=== PATIENT | female | born 1935 | race Caucasian/White ===

== ENCOUNTER → 2017-02-17 | Outpatient (CLI) | payer MEDICARE, BC ==
[~2017-02-17] MED LIST: ASPIRIN 81MG TA81 MG PO; CENTRUM SILVER1 TAB PO; PRAVASTATIN 20M20 MG PO; SYNTHROID0.025 MG PO
--- NOTE | 2017-02-17 11:27 | RADIOLOGY REPORT PS360 ---
CHEST(2 VIEWS-NOT PORTABLE) HISTORY: DYSPNEA ON EXERTION ORDERING PHYSICIAN: Hadley Gao MD PATIENT AGE: 82 years COMPARISON: None available FINDINGS: There is mild cardiomegaly without failure.. Nodularity noted in the right perihilar region possibly related to overlapping vessel. Cannot exclude pulmonary nodule. Minimal nodularity also noted lung base 9 mm. There is increased density in the lung bases medially on both sides probably related to pericardial fat pad. Upper lobes are clear. No acute bony anomalies. IMPRESSION: 1. Mild cardiomegaly with probable pericardial fat pad. 2. Nonspecific nodular opacity left lower lobe could be related to nipple shadow and in the right infrahilar region probably related to overlapping vessel. Follow-up may confirm stability. 3. No definite acute finding
== END ==
LOC: RAD 09:57
DX: J45.909 Unspecified asthma, uncomplicated (principal); R06.09 Other forms of dyspnea

== ENCOUNTER → 2017-03-10 | Outpatient (CLI) | payer MEDICARE, BC ==
--- NOTE | 2017-03-10 14:20 | RADIOLOGY REPORT PS360 ---
MRI-C-SPINE W/O, MRI-3D RENDERING/MYELOGRAM HISTORY: Neck pain with burning sensation radiating into the head with bilateral shoulder pain, left-sided neck pain NECK PAIN ORDERING PHYSICIAN: Hadley Gao MD PATIENT AGE: 82 years COMPARISON: Radiograph of 02/28/2017 TECHNIQUE: Standard multiplanar multiecho sequences are performed without contrast. 3-D MIP and myelographic images are also rendered and reviewed. Motion artifact does decrease the szrbij-[id number] ratio. FINDINGS: There is normal alignment. Craniocervical junction has an unremarkable appearance. C2-C3: Unremarkable. C3-C4: Unremarkable. C4-C5: Minimal foraminal narrowing on the left from uncovertebral hypertrophy. C5-C6: Degenerative disc disease with minimal bulging disc. There is left-sided uncovertebral hypertrophy with left-sided foraminal narrowing. C6-C7: Degenerative disc disease with medium-sized bulging disc with resultant canal stenosis. C7-T1: Degenerative disc disease. T1-T2: Minimal bulging disc. IMPRESSION: 1. Cervical spondylosis with multilevel degenerative disc disease from C5 to C7 with bulging disc at C5-C6 and C6-C7. Canal stenosis at C6-C7.. 2. Left-sided foraminal narrowing at C4-C5 and C5-C6 from uncovertebral hypertrophy 3. No disc herniation evident
--- NOTE | 2017-03-10 14:20 | RADIOLOGY REPORT PS360 ---
MRI-C-SPINE W/O, MRI-3D RENDERING/MYELOGRAM HISTORY: Neck pain with burning sensation radiating into the head with bilateral shoulder pain, left-sided neck pain NECK PAIN ORDERING PHYSICIAN: Hadley Gao MD PATIENT AGE: 82 years COMPARISON: Radiograph of 02/28/2017 TECHNIQUE: Standard multiplanar multiecho sequences are performed without contrast. 3-D MIP and myelographic images are also rendered and reviewed. Motion artifact does decrease the keszvv-ep-[id number] ratio. FINDINGS: There is normal alignment. Craniocervical junction has an unremarkable appearance. C2-C3: Unremarkable. C3-C4: Unremarkable. C4-C5: Minimal foraminal narrowing on the left from uncovertebral hypertrophy. C5-C6: Degenerative disc disease with minimal bulging disc. There is left-sided uncovertebral hypertrophy with left-sided foraminal narrowing. C6-C7: Degenerative disc disease with medium-sized bulging disc with resultant canal stenosis. C7-T1: Degenerative disc disease. T1-T2: Minimal bulging disc. IMPRESSION: 1. Cervical spondylosis with multilevel degenerative disc disease from C5 to C7 with bulging disc at C5-C6 and C6-C7. Canal stenosis at C6-C7.. 2. Left-sided foraminal narrowing at C4-C5 and C5-C6 from uncovertebral hypertrophy 3. No disc herniation evident
--- NOTE | 2017-03-10 14:20 | RADIOLOGY REPORT PS360 ---
MRI-C-SPINE W/O, MRI-3D RENDERING/MYELOGRAM HISTORY: Neck pain with burning sensation radiating into the head with bilateral shoulder pain, left-sided neck pain NECK PAIN ORDERING PHYSICIAN: Hadley Gao MD PATIENT AGE: 82 years COMPARISON: Radiograph of 02/28/2017 TECHNIQUE: Standard multiplanar multiecho sequences are performed without contrast. 3-D MIP and myelographic images are also rendered and reviewed. Motion artifact does decrease the todaan-qf-suszx ratio. FINDINGS: There is normal alignment. Craniocervical junction has an unremarkable appearance. C2-C3: Unremarkable. C3-C4: Unremarkable. C4-C5: Minimal foraminal narrowing on the left from uncovertebral hypertrophy. C5-C6: Degenerative disc disease with minimal bulging disc. There is left-sided uncovertebral hypertrophy with left-sided foraminal narrowing. C6-C7: Degenerative disc disease with medium-sized bulging disc with resultant canal stenosis. C7-T1: Degenerative disc disease. T1-T2: Minimal bulging disc. IMPRESSION: 1. Cervical spondylosis with multilevel degenerative disc disease from C5 to C7 with bulging disc at C5-C6 and C6-C7. Canal stenosis at C6-C7.. 2. Left-sided foraminal narrowing at C4-C5 and C5-C6 from uncovertebral hypertrophy 3. No disc herniation evident
--- NOTE | 2017-03-10 14:20 | RADIOLOGY REPORT PS360 ---
MRI-C-SPINE W/O, MRI-3D RENDERING/MYELOGRAM HISTORY: Neck pain with burning sensation radiating into the head with bilateral shoulder pain, left-sided neck pain NECK PAIN ORDERING PHYSICIAN: Hadley Gao MD PATIENT AGE: 82 years COMPARISON: Radiograph of 02/28/2017 TECHNIQUE: Standard multiplanar multiecho sequences are performed without contrast. 3-D MIP and myelographic images are also rendered and reviewed. Motion artifact does decrease the jwaeys-px-lakqw ratio. FINDINGS: There is normal alignment. Craniocervical junction has an unremarkable appearance. C2-C3: Unremarkable. C3-C4: Unremarkable. C4-C5: Minimal foraminal narrowing on the left from uncovertebral hypertrophy. C5-C6: Degenerative disc disease with minimal bulging disc. There is left-sided uncovertebral hypertrophy with left-sided foraminal narrowing. C6-C7: Degenerative disc disease with medium-sized bulging disc with resultant canal stenosis. C7-T1: Degenerative disc disease. T1-T2: Minimal bulging disc. IMPRESSION: 1. Cervical spondylosis with multilevel degenerative disc disease from C5 to C7 with bulging disc at C5-C6 and C6-C7. Canal stenosis at C6-C7.. 2. Left-sided foraminal narrowing at C4-C5 and C5-C6 from uncovertebral hypertrophy 3. No disc herniation evident
== END ==
LOC: RAD 08:24
DX: M54.2 Cervicalgia (principal)

== ENCOUNTER → 2017-03-22 | Outpatient (CLI) | payer MEDICARE, BC | LOC: SL 13:59 | DX: G47.33 Obstructive sleep apnea (adult) (pediatric) (principal) | CPT/HCPCS: G0399-TC ==